=== PATIENT | male | born 1965 | race African-American/Black ===

== ENCOUNTER 2021-04-22 09:26 | Inpatient (IN) | payer BC, OTHER ==
[2021-04-22] VITALS (7 sets, daily range): BP systolic 107–157; BP diastolic 53–81
[~2021-04-22] VITALS: Ht 172.7 cm; Wt 73.9 kg
[~2021-04-22 09:26] MED LIST: ADULT LOW DOSE81 MG PO; CIPROFLOXACIN500 M1 PO; COZAAR 50 MG TA50 M2 PO; FISH OIL 1,0001 EAC8; LIPITOR80 MG PO; MACROBID 100 M100 M1 PO; MULTIVITAMINS; NORCO 5-325 TA1 EACH PO
[2021-04-22 09:53] LABS: HEMATOCRIT 21.9 % (42.0-52.0); HEMOGLOBIN 6.6 gm/dL (14.0-18.0); MCH 20.3 pg (26.0-34.0); MCHC 30.2 g/dL (28.0-37.0); MCV 67.3 fL (80.0-100.0); PLATELET COUNT 350 thou/uL (150-400); RBC 3.25 mil/uL (4.50-6.00); RDW 19.4 % (10.5-14.5); WBC 6.1 thou/uL (4.0-11.0)
[2021-04-22 10:05] LABS: CALCIUM 8.8 mg/dL (8.5-10.1); CREATININE 0.9 mg/dL (0.7-1.3); POTASSIUM 4.8 mmol/L (3.5-5.1)
[2021-04-22 10:09] LABS: ALBUMIN 3.5 g/dL (3.4-5.0); MAGNESIUM 1.7 mg/dL (1.8-2.4)
[2021-04-22 10:25] LABS: APTT 25.1 Seconds (24.5-32.8); PROTIME 10.9 Seconds (10.5-12.1)
[2021-04-22 10:29] LABS: TOTAL BILIRUBIN 0.2 mg/dL (0.2-1.0); TOTAL PROTEIN 7.6 g/dL (6.4-8.2)
[2021-04-22] MEDS ORDERED: LIPITOR 40 MG T40 M1 PO (11:14)
--- NOTE | 2021-04-22 13:02 | NUR ---
PT ARRIVED FROM ED AT APPROXIMATELY 1210. PT A&OX4 AND COMMUNICATING NEEDS APPROPRIATELY TO STAFF. PT AMBULATING INDEPENDENTLY. TELE MONITORING WAS STARTED. PT ORIENTED TO THE ROOM AND APPROPRIATE ARM BANDS WERE PLACED ON THE PT. FALL PREVENTION EDUCATION PROVIDED, CALL LIGHT WITHIN REACH. ADMISSION PAPERWORK SIGNED, ADMISSION TELE STRIP OBTAINED AND PLACED IN CHART. PT ARRIVED ON THE UNIT RECEIVING A BLOOD TRANSFUSSION. DENIES PAIN AND SOA UPON ARRIVAL.
[2021-04-22 15:14] LABS: % SATURATION 3 % (20-39); IRON 10 ug/dL (65-175); TIBC 373 ug/dL (250-450)
[2021-04-22 15:15] LABS: ABSOLUTE NEUTROPHILS 4.1 thou/uL (1.4-8.2)
[2021-04-22 15:17] LABS: NUCLEATED RBCS 1 /100WBC
[2021-04-22 15:19] LABS: HYPOCHROMASIA 3+
[2021-04-22 15:20] LABS: ANISOCYTOSIS 2+; MICROCYTES 2+; POIKILOCYTOSIS 2+
[2021-04-22 15:20] LABS: ABSOLUTE RETIC COUNT 0.051 10^6/uL; OBSERVED RETIC COUNT 1.53 % (0.6-2.6)
[2021-04-22 15:42] LABS: FOLIC ACID 20.9 ng/mL (8.6-58.9)
--- NOTE | 2021-04-22 16:10 | EKG ---
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: : 1965 Requested By: Dale Hunter Order Number: [id number] MD: Lion Kirk Measurements Intervals Bern Rate: 63 P: 67 UT: 123 QRS: 57 QRSD: 133 T: 44 QT: 417 QTc: 427 Interpretive Statements Sinus rhythm Right bundle branch block Compared to ECG 09/23/2015 07:03:39 Right bundle-branch block now present Ventricular premature complex(es) no longer present Repolarization abnormality is no longer present Electronically Signed On 04-22-2021 16:10:06 [employer]PERVIS[employer] by Lion Kirk [email or web address] <ELECTRONICALLY SIGNED> By: Lion Kirk MD, [facility] 04/22/21 1610 0932 0932 Lion Kirk MD, [facility] /EPI
[2021-04-22 16:41] LABS: HEMOGLOBIN 7.3 gm/dL (14.0-18.0)
--- NOTE | 2021-04-22 18:08 | NUR ---
PT FINISHED ONE UNIT OF PRB AND TOLERATED TREATMENT WELL. VITALS DOCUMENTED IN THE PROPER DOCUMENTATION. PT TOLERATED IV IRON WELL. AMBULATES IN THE ROOM INDEPENDENTLY. DENIES NAUSEA, VOMITING, CHEST PAIN, OR PAIN ANYWHERE ELSE. PT HAD A GOOD APPETITIE, CONSUMING 100% OF MEALS AND SNACKS. PT VOIDED WITHOUT ANY ISSUES. NO VISABLE BLOOD IN URINE. PT WAS PLEASANT THROUGHOUT THE SHIFT.
[2021-04-22 19:18] LABS: URINE BILIRUBIN NEGATIVE (Negative); URINE BLOOD 1+ (Negative); URINE CLARITY CLEAR; URINE COLOR YELLOW; URINE GLUCOSE-RANDOM* NEGATIVE (Negative); URINE KETONES NEGATIVE (Negative); URINE LEUKOCYTES-REFLEX NEGATIVE (Negative); URINE NITRITE-REFLEX NEGATIVE (Negative); URINE PROTEIN (DIPSTICK) NEGATIVE (Negative); URINE UROBILINOGEN 0.2 E.U./dl (0.2-1.0)
[2021-04-22 19:27] LABS: SQUAMOUS 4-10 Moderate /LPF (0-3)
[2021-04-22 19:28] LABS: BACTERIA-REFLEX 1-9 Few /HPF (None Seen); CASTS None Seen /LPF (None Seen); CRYSTALS None Seen /LPF (None Seen); URINE RBC 3-10 Few /HPF (NONE SEEN); URINE WBC-REFLEX None Seen /HPF (0-5)
[2021-04-23 02:06] LABS: HAPTOGLOBIN 49 mg/dL (29-370); IgA 496 mg/dL (90-386); IgG 1474 mg/dL (603-1613); IgM 127 mg/dL (20-172)
[2021-04-23 03:06] LABS: TESTOSTERONE* 447 ng/dL (264-916)
[2021-04-23 04:04] LABS: HEMATOCRIT 22.8 % (42.0-52.0); MCH 21.3 pg (26.0-34.0); MCHC 30.7 g/dL (28.0-37.0); MCV 69.6 fL (80.0-100.0); RBC 3.28 mil/uL (4.50-6.00); RDW 21.6 % (10.5-14.5); WBC 6.7 thou/uL (4.0-11.0)
--- NOTE | 2021-04-23 04:14 | NUR ---
RECEIEVED PATIENT AT 1900H.ASSESSMENT DONE CHARTED.MEDS GIVEN PER MAY.ALL NEEDS ATTENDED.TO CONTINOUSLY MONITOR.
[2021-04-23 04:23] LABS: CHOLESTEROL 139 mg/dL (<200); HDL CHOLESTEROL 60 mg/dL (>40); LDL CHOLESTEROL 69 mg/dL (<100); TC:HDL 2.3 Ratio (Not establshd); TRIGLYCERIDE 53 mg/dL (<150); VLDL 11 mg/dL (<40)
[2021-04-23 04:37] LABS: SERUM ASSESSMENT Clear
[2021-04-23 04:45] VITALS: BP 138/76
[2021-04-23 07:12] LABS: HEMATOLOGY COMMENTS Note: (())
[2021-04-23 07:51] VITALS: BP 147/81
[2021-04-23 11:41] VITALS: BP 148/85
--- NOTE | 2021-04-23 13:32 | 2DMMODE ---
[facility] [place] [address] 2 D/M-MODE ECHOCARDIOGRAM Name: AYLIN BAUTISTA Room #: 208-P ADM IN M.R.#: [id number] Admission: 04/22/21 Attend Phys: Pipo Doran MD Discharge: Date of : 65 Report #: [id number] THIS REPORT FOR: cc: Farideh Cohen K. Steven DO Mancuso,Jv Cardenas MD [facility] ~ APPROVED REPORT Study performed: 04/23/2021 10:35:03 EXAM: Comprehensive 2D, Doppler, and color-flow Echocardiogram Patient Location: Bedside Room #: 208 Status: on-call BSA: 1.87 HR: 64 bpm BP: 148/87 mmHg Rhythm: NSR Other Information Study Quality: Adequate Indications CAD Chest Pain 2D Dimensions IVSd: 10.26 (7-11mm) LVOT Diam: 22.00 (18-24mm) LVDd: 57.03 mm PWd: 12.87 (7-11mm) Ascending Ao: 28.67 (22-36mm) LVDs: 38.95 (25-40mm) Aortic Root: 32.43 mm LV Single Plane 4CH: 60.71 % LV Single Plane 2CH: 57.11 % Biplane EF: 58.5 % Volumes Left Atrial Volume (Systole) Single Plane 4CH: 93.12 mL Single Plane 2CH: 101.96 mL LA ESV Index: 59.00 mL/m2 Aortic Valve AoV Peak Layo.: 1.38 m/s AO Peak Gr.: 7.57 mmHg LVOT Max P.02 mmHg [facility] [address] [address] 2 D/M-MODE ECHOCARDIOGRAM Name: AYLIN BAUTISTA Room #: 208-P [facility]#: [id number] Admission: 04/22/21 Attend Phys: Pipo Doran, Discharge: Date of : 65 Report #: [id number] LVOT Max V: 1.00 m/s FRANKO Vmax: 2.88 cm2 Mitral Valve E/A Ratio: 1.5 MV Decel. Time: 468.15 ms MV E Max Layo.: 0.67 m/s MV A Layo.: 0.44 m/s MV PHT: 135.76 ms IVRT: 100.35 ms TDI E/Lateral E': 6.09 E/Medial E': 6.09 Medial E' Layo.: 0.11 m/s Lateral E' Layo.: 0.11 m/s Pulmonary Valve PV Peak Layo.: 1.19 m/s PV Peak Gr.: 5.68 mmHg Pulmonary Vein P Vein S: 0.49 m/s P Vein A: 0.39 m/s P Vein D: 0.51 m/s P Vein A Dur.: 141.9 msec P Vein S/D Ratio: 0.96 Tricuspid Valve TR Peak Layo.: 2.23 m/s RAP Estimate: 7.00 mmHg TR Peak Gr.: 19.86 mmHg PA Pressure: 27.00 mmHg Left Ventricle The left ventricle is normal size. There is normal LV segmental wall motion. There is normal left ventricular wall thickness. Left ventricular systolic function is normal. The left ventricular ejection fraction is within the normal range. LVEF is 55-60%. Mild diastolic dysfunction is present (impaired relaxation pattern). Right Ventricle The right ventricle is normal size. The right ventricular systolic function is normal. Atria Left atrium is severely dilated. Right atrium is dilated. Aortic Valve The aortic valve is normal in structure. No aortic regurgitation is [address] [address] 2 D/M-MODE ECHOCARDIOGRAM Name: AYLIN BAUTISTA Room #: 208-P [facility]#: [id number] Admission: 04/22/21 Attend Phys: Pipo Doran, Discharge: Date of : 65 Report #: [id number] present. There is no aortic valvular stenosis. Mitral Valve The mitral valve is normal in structure. Mild mitral regurgitation. No evidence of mitral valve stenosis. Tricuspid Valve The tricuspid valve is normal in structure. Trace tricuspid regurgitation. Pulmonary artery pressure is 27 mmHg. Pulmonic Valve The pulmonary valve is normal in structure. Trace pulmonic regurgitation. Great Vessels The aortic root is normal in size. The ascending aorta is normal in size. IVC is normal in size and collapses >50% with inspiration. Pericardium There is no pericardial effusion. <Conclusion> The left ventricle is normal size. LVEF is 55-60%. Mild diastolic dysfunction is present (impaired relaxation pattern). The right ventricle is normal size. Left atrium is severely dilated. Right atrium is dilated. The aortic valve is normal in structure. Mild mitral regurgitation. Trace tricuspid regurgitation. Pulmonary artery pressure is 27 mmHg. The aortic root is normal in size. There is no pericardial effusion. <ELECTRONICALLY SIGNED> By: Jv Beltran MD, FACC 04/23/21 1332 31 31 Jv Beltran MD, FACC /INF
[2021-04-23 15:42] VITALS: BP 146/77
[2021-04-23 16:59] LABS: HEMATOCRIT 24.6 % (42.0-52.0); HEMOGLOBIN 7.6 gm/dL (14.0-18.0)
[2021-04-23 19:45] VITALS: BP 143/71
[2021-04-24 03:06] LABS: HEMOGLOBIN 7.6 gm/dL (14.0-18.0)
[2021-04-24 03:08] LABS: HEMATOCRIT 25.2 % (42.0-52.0); MCHC 30.4 g/dL (28.0-37.0); MCV 69.1 fL (80.0-100.0); RBC 3.64 mil/uL (4.50-6.00); RDW 21.9 % (10.5-14.5); WBC 8.5 thou/uL (4.0-11.0)
[2021-04-24 03:12] LABS: CALCIUM 8.8 mg/dL (8.5-10.1); MAGNESIUM 1.7 mg/dL (1.8-2.4); POTASSIUM 3.9 mmol/L (3.5-5.1)
[2021-04-24 04:30] VITALS: BP 135/66
--- NOTE | 2021-04-24 06:34 | NUR ---
SLEPT PART OF SHIFT. UP AD RUSS IN ROOM. WORKING ON GOALS AND PLAN OF CARE FOR NOC. DENIES COMPLAINTS OF CHEST PAIN OR TIGHTNESS. CONTINUE TO ASSES.
[2021-04-24 08:06] LABS: HEP B SURFACE Ab(ANTI-HBS Reactive (()); HEPATITIS B SURFACE AG Negative (Negative)
[2021-04-24 08:24] VITALS: BP 123/69
[2021-04-24 11:11] VITALS: BP 135/64
[2021-04-24 11:18] VITALS: BP 128/64; BP 128/70
[2021-04-24 13:07] LABS: FREE TESTOSTERONE 6.8 pg/mL (7.2-24.0)
[2021-04-24 15:26] VITALS: BP 114/90
--- NOTE | 2021-04-24 17:05 | NUR ---
PT IS AXOX4, PLEASANT; DENIES PAIN. VSS, AFEBRILE, SB-SR BBB ON THE MONITOR. HGB 7.6 THIS AM. ONE (1) UNIT PRBC GIVEN. CARDIOLOGY CONSULTED. PT TO HAVE CARDIAC CATH IN AM. CONSENT SIGNED AND IN CHART. POC IS TO CONTINUE TO ASSESS FOR CP, WEAKNESS IN BUE. LOW FALL PRECAUTIONS IN PLACE. NO CONCERNS AT THIS TIME.
[2021-04-24 17:38] LABS: HEMATOCRIT 28.1 % (42.0-52.0); HEMOGLOBIN 8.6 gm/dL (14.0-18.0)
[2021-04-24 20:49] VITALS: BP 152/80
[2021-04-25] VITALS (12 sets, daily range): BP systolic 125–144; BP diastolic 57–80
[2021-04-25 01:06] LABS: HEPATITIS C VIRUS AB <0.1 (0.0-0.9)
[2021-04-25 02:56] LABS: HEMATOCRIT 28.6 % (42.0-52.0); HEMOGLOBIN 8.9 gm/dL (14.0-18.0); MCH 22.2 pg (26.0-34.0); MCHC 31.1 g/dL (28.0-37.0); MCV 71.4 fL (80.0-100.0); RBC 4.01 mil/uL (4.50-6.00); RDW 22.6 % (10.5-14.5); WBC 9.1 thou/uL (4.0-11.0)
[2021-04-25 03:09] LABS: CALCIUM 9.1 mg/dL (8.5-10.1); MAGNESIUM 1.9 mg/dL (1.8-2.4); POTASSIUM 3.7 mmol/L (3.5-5.1)
--- NOTE | 2021-04-25 06:28 | NUR ---
SLEPT PART OF SHIFT. NO PRESENT COMPLAINTS OF PAIN. UP AD RUSS. NPO FOR AM HEART CATH. UP IN SHOWER AT THIS TIME. CONTINUE TO ASSES.
[2021-04-25 11:07] LABS: KAPPA/LAMBDA RATIO 1.62 (0.26-1.65)
[2021-04-25] MEDS ORDERED: IRON325 M1 PO (12:03)
--- NOTE | 2021-04-25 16:22 | CATHLAB ---
[facility] [place] [address] INVASIVE PROCEDURE REPORT Name: AYLIN BAUTISTA Room #: 208-P DIS IN M.R.#: [id number] Admission: 04/22/21 Attend Phys: Pipo Doran MD Discharge: 04/25/21 Date of : 65 Report #: [id number] THIS REPORT FOR: cc: Farideh Cohen K. Steven DO Mancuso, Gerald M. 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 A PINNACLE 6FR Sheath #[id number] sheath was inserted into the RFA^. Coronary angiography was performed using coronary diagnostic catheters. The right coronary system was accessed and visualized with a JR4 catheter. The left coronary system was accessed and visualized with a JL4 catheter. The left ventricle was accessed and visualized with a PIGTAIL catheter. Left ventriculogram was performed in HENDERSON projection. An aortogram of the abdominal aorta was performed. Closure device was deployed with a 6 Fr MYNXGRIP 6/7F #[id number]. The patient tolerated the procedure well and there were no complications associated with the procedure. There was no hematoma. Intraoperative Conscious Sedation Sedation start time: 09:36 Case end Time: 10:16 [facility] [address] [place] [address] INVASIVE PROCEDURE REPORT Name: AYLIN BAUTISTA Room #: 208-P [facility] IN .R.#: [id number] Admission: 04/22/21 Attend Phys: Pipo Doran, Discharge: 04/25/21 Date of : 65 Report #: [id number] Fentanyl 50 mcg Versed 2 mg Fluoro Time: 1.50 minutes Dose: DAP 4653.10 cGycm2 651 mGy Contrast Type and Amount: Omnipaque 145 ml Hemodynamics The aortic pressure is 151/71 mmHg with a mean of 97 mmHg. The left ventricular pressure is 146/5 mmHg with a mean of mmHg. The left ventricular end diastolic pressure is 28 mmHg. Conclusion #1 Normal left ventricular size and systolic function EF 60%. #2 abdominal aortogram reveals a dual supply to the right kidney and a single left renal artery no aneurysm is noted brisk flow into the iliac system. #3 the left main has some distal tapered narrowing into moderate Tc disease ostial LAD and circumflex. Left main itself is patent. #4 the ostial LAD is a 60 to 70% lesion filling a large vessel with mild ectasia to the apex. There is a 50% proximal LAD. #5 ostial circumflex is also in the 60 to 70% range nondominant with well-preserved to distal OM branches. Moderate in distribution. #6 dominant right coronary artery with mild irregularities is anatomically dominant preserved PDA CASANDRA. No occlusive disease. Recommendations and plan: Continue aggressive risk factor modification. 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 No indication for intervention although moderate ostial LAD and circumflex disease. Would like serial stress testing to evaluate. His symptoms were only with hemoglobin severely decreased in the 6 range. He otherwise remains asymptomatic. Follow-up stress testing. <ELECTRONICALLY SIGNED> By: Jv Beltran MD, FACC 04/25/21 162 21 21 Jv Beltran MD, FACC /INF
[2021-04-25 17:06] LABS: GLOBULIN TOTAL 3.6 g/dL (2.2-3.9); M-SPIKE Not Observed g/dL (Not Observed)
[2021-04-25 19:07] LABS: ANA INTERPRETATION Positive (())
--- NOTE | 2021-04-25 19:45 | NUR ---
PT IS AXOX4, PLEASANT; VSS, AFEBRILE, SR/SB ON THE MONITOR. PT DENIES PAIN. CARDIAC CATH THIS AM. R GROIN C/D/I, NO HEMATOMA. BEDREST COMPLETED. RX IV IRON GIVEN. PT TO D/C TO HOME. FOLLOW UP APPT AND RX EXPLAINED. PT COMMUNICATED UNDERSTANDING. PT D/C WITH HOME. NO CONCERNS AT THIS TIME.
[2021-04-25 22:06] LABS: HEMOGLOBIN 9.3 g/dL (13.0-17.7)
== END 2021-04-25 16:03 | disposition home or self-care (01) | DRG 287 ==
LOC: ER 09:26 → EROBS 11:08 → 2N 11:08
PROVIDERS: Emergency Medicine; Internal Medicine; Nurse Practitioner; ADMIT Internal Medicine; ATTEND Internal Medicine
DX: I25.110 Atherosclerotic heart disease of native coronary artery with unstable angina pectoris (principal); D64.9 Anemia, unspecified; E78.5 Hyperlipidemia, unspecified; Z85.46 Personal history of malignant neoplasm of prostate; Z92.3 Personal history of irradiation; Z91.013 Allergy to seafood; N30.20 Other chronic cystitis without hematuria; F17.210 Nicotine dependence, cigarettes, uncomplicated; D50.9 Iron deficiency anemia, unspecified
CPT/HCPCS: 10081